=== PATIENT | male | born 1960 | race Caucasian/White ===

== ENCOUNTER 2021-04-25 15:05 | Emergency (ER) | payer BC ==
[~2021-04-25] VITALS: Ht 180.3 cm; Wt 97.7 kg
[2021-04-25 15:21] VITALS: BP 173/96
== END 2021-04-25 17:09 | disposition home or self-care (01) ==
LOC: ER 15:07
DX: M25.461 Effusion, right knee (principal); G89.29 Other chronic pain
CPT/HCPCS: 73564; 99283

== ENCOUNTER 2023-11-29 03:57 | Observation (INO) | payer BC ==
[~2023-11-29] VITALS: Ht 180.3 cm; Wt 93.2 kg
[2023-11-29 03:59] VITALS: TEMP 98
[2023-11-29 05:12] LABS: BASOPHILS % (AUTO) 0.3 % (0-1); EOSINOPHILS % (AUTO) 0.9 % (0-6); HEMATOCRIT 45.4 % (42.0-52.0); HEMOGLOBIN 15.9 g/dl (14.0-17.9); LYMPHOCYTES # (AUTO) 1.8 X10'3 (1.1-4.8); LYMPHOCYTES % (AUTO) 33.4 % (21-51); MEAN CORPUSCULAR HEMOGLOBIN 31.9 PG (27.0-31.0); MEAN CORPUSCULAR HGB CONC 34.9 g/dL (33.0-36.5); MEAN CORPUSCULAR VOLUME 91.3 FL (78-98); MEAN PLATELET VOLUME 8.9 FL (7.4-10.4); MONOCYTES # (AUTO) 0.5 X10'3 (0-0.9); MONOCYTES % (AUTO) 9.9 % (2-12); NEUTROPHILS # (AUTO) 2.9 X10'3 (1.8-7.7); NEUTROPHILS % (AUTO) 55.5 % (42-75); PLATELET COUNT 178 X10'3 (140-440); RED BLOOD COUNT 4.97 X10'6 (4.70-6.10); RED CELL DISTRIBUTION WIDTH 12.9 % (11.5-14.5); WHITE BLOOD COUNT 5.3 X10'3 (4.5-11.0)
[2023-11-29 05:18] LABS: LACTIC SEPSIS 2.4 MMOL/L (0.4-2.0)
[2023-11-29] MEDS: normal saline 1000ML IV soln IVB ONE (05:18)
[2023-11-29 05:19] LABS: ALBUMIN 4.2 G/DL (3.4-5.0); ANION GAP 12 (8-16); BLOOD UREA NITROGEN 29 MG/DL (7-18); BUN/CREATININE RATIO 22.5 (10.0-20.0); CALCIUM 8.8 MG/DL (8.5-10.1); CHLORIDE 102 MMOL/L (99-107); CREATININE 1.29 MG/DL (0.60-1.10); ETHANOL 122 MG/DL (<10); GLUCOSE 107 MG/DL (70-104); POTASSIUM 3.6 MMOL/L (3.5-5.1); SODIUM 141 MMOL/L (135-145); TOTAL CARBON DIOXIDE 27.4 MMOL/L (24-32); eCRCL 62 ML/MIN; eGFR 56 ML/MIN
[2023-11-29 05:25] LABS: AMMONIA < 10 UMOL/L (11-32)
[2023-11-29] MEDS: ceFAZolin/D5W- 1GM premix 50 ML IV ONE (05:48)
[2023-11-29] MEDS: LIDOcaine 1% 30ml preserv. free vial SQ STA (06:02)
[2023-11-29 06:04] LABS: BILIRUBIN,URINE NEGATIVE (Neg); CLARITY,URINE CLEAR (Clear); COLOR,URINE STRAW (Yellow); GLUCOSE, URINE NEGATIVE (Neg); KETONES,URINE NEGATIVE (Neg); LEUKOCYTE ESTERASE ,URINE NEGATIVE (Neg); NITRITES, URINE NEGATIVE (Neg); OCCULT BLOOD,URINE NEGATIVE (Neg); PROTEIN,URINE NEGATIVE (Neg); UROBILINOGEN,URINE 0.2 E.U/dL (0.2-1.0)
[2023-11-29 06:08] LABS: URINE AMPHETAMINE SCREEN NEGATIVE (Neg); URINE BARBITUATE SCREEN NEGATIVE (Neg); URINE BENZODIAZEPINES SCREEN NEGATIVE (Neg); URINE CANNABINOID SCREEN NEGATIVE (Neg); URINE COCAINE SCREEN NEGATIVE (Neg); URINE METHADONE SCREEN NEGATIVE (Neg); URINE OPIATE SCREEN NEGATIVE (Neg); URINE PHENCYCLIDINE SCREEN NEGATIVE (Neg)
[2023-11-29 06:31] LABS: UA COLLECTION TYPE URINAL
[2023-11-29] MEDS ORDERED: mag hydrox/Alum hydrox/simeth 30ml oral suspension PO PRN (07:15)
[2023-11-29] MEDS ORDERED: HYDROcodone/acetaminophen 10/325mg tab PO PRN (07:15)
[2023-11-29] MEDS ORDERED: acetaminophen 325mg tablet PO PRN ×2 (07:15)
[2023-11-29] MEDS ORDERED: morphine 2 MG/ML inj. syringe IV PRN ×2 (07:15)
[2023-11-29] MEDS ORDERED: HYDROcodone/acetaminophen 5mg/325mg tablet PO PRN (07:15)
[2023-11-29] MEDS ORDERED: magnesium hydroxide 30ml (MOM) UD suspension PO PRN (07:15)
[2023-11-29] MEDS ORDERED: ondansetron/PF 4mg/2ml inj IV PRN (07:15)
[2023-11-29] MEDS: normal saline 1000ml 1,000 ML IV SCH (07:33)
[2023-11-29] MEDS: docusate sod 100mg capsule PO SCH (07:33)
[2023-11-29 09:41] VITALS: BP 140/80; PULSE 85; RESP 16; O2SAT 98
[2023-11-29 11:37] LABS: PRO BRAIN NATRIURETIC PEPTIDE < 30 PG/ML (0-125)
== END 2023-11-29 09:52 | disposition left against medical advice (07) ==
LOC: ER 03:57 → ED HOLD 07:16
PROVIDERS: ADMIT Internal Medicine; ATTEND Internal Medicine
DX: S01.81XA Laceration without foreign body of other part of head, initial encounter (principal); F10.120 Alcohol abuse with intoxication, uncomplicated; E86.0 Dehydration; W01.198A Fall on same level from slipping, tripping and stumbling with subsequent striking against other object, initial encounter; Y93.89 Activity, other specified; Y92.89 Other specified places as the place of occurrence of the external cause; Y99.8 Other external cause status; Z88.0 Allergy status to penicillin
CPT/HCPCS: 12011; 36415; 70450; 70486; 71045; 72125; 80048; 80305; 80320; 81003; 82140; 82948; 83605; 83880; 84484; 85025; 87040; 93005; 96361; 96365; 99285; G0378; J0690; J7030; A6402